=== PATIENT | female | born 1945 | race Caucasian/White ===

== ENCOUNTER → 2020-10-15 | Day surgery (SDC) | payer OTHER, BC | END | disposition home or self-care (01) | LOC: FRADUS-SUR 15:04 | PROVIDERS: ATTEND Surgery Surgical Oncology | PROC: 0KBJ3ZX Excision of Left Thorax Muscle, Percutaneous Approach, Diagnostic (ICD-10-PCS; principal; 2020-10-15) | DX: C50.912 Malignant neoplasm of unspecified site of left female breast (principal); Z17.0 Estrogen receptor positive status [ER+]; R22.2 Localized swelling, mass and lump, trunk | CPT/HCPCS: 19083; 20206; 87899; 88305-TC; 88342-TC; A4648 ==